=== PATIENT | male | born 1995 | race Caucasian/White ===

== ENCOUNTER 2023-08-22 12:05 | Emergency (ER) | payer OTHER, SELFPAY ==
[2023-08-22 12:06] VITALS: BP 128/64; PULSE 79; RESP 16; TEMP 35.3; O2SAT 99; BMI 35.8
--- NOTE | 2023-08-22 12:19 | EX.ED.DYSGE1 ---
HPI <SARAH Pitts - Last Filed: 08/22/23 13:34> History of Present Illness Chief Complaint: Complaint Narrative Narrative: 28-year-old male has a history of IgA nephropathy causing chronic kidney disease. This morning he had blood in his urine causing it to look pink-tinged. He had no pain and no frequency. He has a low backache and earlier he had pain in both legs below the level of the knees to his feet. States it felt like a sharp shooting pain. He follows with a political science instructor in [place] and his kidney function has been declining. The doctor stopped his lisinopril recently. The only thing he takes his allopurinol for gout. He states he had similar symptoms in the past and was treated in the ER with IV fluids. [facility] <SARAH Pitts - Last Filed: 08/22/23 13:34> [facility] Medical History (Updated 08/22/23 @ 13:34 by SARAH Pitts) CKD (chronic kidney disease) Home Medications allopurinol 100 mg tablet mg 08/22/23 [History Last Taken Unknown] lisinopril 10 mg tablet mg 08/22/23 [History Last Taken Unknown] Allergy/AdvReac Type Severity Reaction Status Date / Time No Known Allergies Allergy Verified 08/22/23 12:07 Surgical History no surgical history Social History Smoking Status: Never smoker ROS <SARAH Pitts - Last Filed: 08/22/23 13:34> ROS ED ROS Narrative Constitutional: Negative for fever, chills, malaise. GI: Negative for abdominal pain, nausea, vomiting. : Positive for hematuria. Negative for dysuria, frequency. EXAM <SARAH Pitts - Last Filed: 08/22/23 13:34> Physical Exam Narrative Exam Narrative: CONST: Patient sitting in no acute distress. EYES: Normal inspection. NECK: Normal inspection. RESP: No respiratory distress, CTAB. CVS: Regular rate and rhythm, no murmur, no gallop. ABD: Soft and nontender, no guarding or rebound, nondistended. Back: Normal inspection, no CVA tenderness. SKIN: Color normal, no rash, warm, dry, intact. EXTREMITIES: Normal appearance, nontender, no pedal edema. 2+ Dp pulses. NEURO: Oriented x4. PSYCH: Normal affect. Const Vital Signs: 08/22/23 12:06 Temperature 95.6 F L Temperature Source Temporal Pulse Rate 79 Respiratory Rate 16 Blood Pressure 128/64 H Blood Pressure Mean 85 Pulse Ox 99 Oxygen Delivery Method Room Air <Dr. Erickson Lozano DO - Last Filed: 08/22/23 16:38> Physical Exam Const Vital Signs: 08/22/23 12:06 Temperature 95.6 F L Temperature Source Temporal Pulse Rate 79 Respiratory Rate 16 Blood Pressure 128/64 H Blood Pressure Mean 85 Pulse Ox 99 Oxygen Delivery Method Room Air MDM <SARAH Pitts - Last Filed: 08/22/23 13:34> [facility] MDM Narrative Medical decision making narrative: Patient has a history of autoimmune kidney disease and CKD presenting with hematuria this morning. He appears well and nontoxic. Vital signs stable. He has no abdominal or flank tenderness so I do not suspect kidney stone, rather his underlying IgA nephropathy. He was treated with IV fluids and blood work ordered. White count is normal at 6.5. Hemoglobin 12.8. He has normal electrolytes, BUN 51, creatinine 3.43. This is improved from the level he showed me on his phone from a week ago. Urinalysis has no evidence of infection or blood. He was provided a copy of his labs and should follow-up with his political science instructor. He was discharged in stable condition. External records reviewed: Patient showed me lab work on his phone and on 08/16/2023 BUN was 60, creatinine 3.72. Lab Data Attestation: I reviewed the patient's lab results. Labs: Laboratory Results - last 24 hr 08/22/23 08/22/23 12:25 12:57 WBC 6.5 RBC 4.45 L Hgb 12.8 L Hct 37.8 L MCV 84.9 MCH 28.8 MCHC 33.9 RDW Std Deviation 38.7 RDW Coeff of Chantal 12.7 Plt Count 320 MPV 10.0 Immature Gran % (Auto) 0.200 Neut % (Auto) 53.0 Lymph % (Auto) 32.2 [place] % (Auto) 8.3 Eos % (Auto) 5.2 H Baso % (Auto) 1.1 H Absolute Neuts (auto) 3.5 Absolute Lymphs (auto) 2.10 Nucleated RBC % 0 Sodium 140 Potassium 4.8 Chloride 116 H Carbon Dioxide 18.0 L Anion Gap 6 BUN 51 H Creatinine 3.43 H Estim Creat Clear Calc 30.47 Est GFR (MDRD) Af Amer 27 L Est GFR (MDRD) Non-Af 22 L BUN/Creatinine Ratio 14.9 Glucose 91 Calcium 8.4 L Urine Color Yellow Urine Clarity Clear Urine pH 5.0 Ur Specific [place] 1.015 Urine Protein 500 H Urine Glucose (UA) Normal Urine Ketones Negative Urine Occult Blood 150 H Urine Nitrite Negative Urine Bilirubin Negative Urine Urobilinogen Normal Ur Leukocyte Esterase Negative Urine RBC 0 SEEN Urine WBC 0 SEEN Ur Squamous Epith Cells 0 SEEN Urine Bacteria 0 SEEN Fine Granular Casts 0-5 SEEN Urine Mucus 0 SEEN <Dr. Erickson Lozano, DO - Last Filed: 08/22/23 16:38> [facility] Lab Data Labs: Laboratory Results - last 24 hr 08/22/23 08/22/23 12:25 12:57 WBC 6.5 RBC 4.45 L Hgb 12.8 L Hct 37.8 L MCV 84.9 MCH 28.8 MCHC 33.9 RDW Std Deviation 38.7 RDW Coeff of Chantal 12.7 Plt Count 320 MPV 10.0 Immature Gran % (Auto) 0.200 Neut % (Auto) 53.0 Lymph % (Auto) 32.2 [place] % (Auto) 8.3 Eos % (Auto) 5.2 H Baso % (Auto) 1.1 H Absolute Neuts (auto) 3.5 Absolute Lymphs (auto) 2.10 Nucleated RBC % 0 Sodium 140 Potassium 4.8 Chloride 116 H Carbon Dioxide 18.0 L Anion Gap 6 BUN 51 H Creatinine 3.43 H Estim Creat Clear Calc 30.47 Est GFR (MDRD) Af Amer 27 L Est GFR (MDRD) Non-Af 22 L BUN/Creatinine Ratio 14.9 Glucose 91 Calcium 8.4 L Urine Color Yellow Urine Clarity Clear Urine pH 5.0 Ur Specific [place] 1.015 Urine Protein 500 H Urine Glucose (UA) Normal Urine Ketones Negative Urine Occult Blood 150 H Urine Nitrite Negative Urine Bilirubin Negative Urine Urobilinogen Normal Ur Leukocyte Esterase Negative Urine RBC 0 SEEN Urine WBC 0 SEEN Ur Squamous Epith Cells 0 SEEN Urine Bacteria 0 SEEN Fine Granular Casts 0-5 SEEN Urine Mucus 0 SEEN Treatment and Re-Evaluation :: I have personally performed a face to face assessment of the patient and have reviewed the MANOLO Note. I performed a substantive portion of the visit including all aspects of the following. My jimenez findings include: History: Patient presents with hematuria and back pain that began today. Patient states he woke up early this morning and had to urinate. Patient states he noted there was some blood in his urine. Patient states it appeared slightly pink. Patient states he had a second episode of hematuria later today. Patient states nothing makes it worse and nothing makes it better. Patient denies any fevers or chills. Patient denies any nausea or vomiting. Patient denies any flank pain. Exam: Vital signs are stable. Patient is afebrile. Patient is in no acute distress. Oral mucosa is pink and moist. Neck is supple. Trachea is midline. No JVD. Heart was regular rate and rhythm. Lungs are clear and equal bilaterally. Abdomen is soft. Bowel sounds are normal. There is no tenderness. Cranial nerves II through XII are intact. There are no focal motor or sensory deficits noted. There is no CVA tenderness noted. Medical Decision Making: Differential diagnosis includes pyelonephritis, urinary tract infection, and electrolyte abnormality. CBC will be obtained to assess for leukocytosis and anemia. Basic metabolic profile will be obtained to assess for renal function and electrolyte abnormality. Urinalysis will be obtained to assess for urinary tract infection and hematuria. CBC was reviewed. There is mild anemia with a hemoglobin of 12.8 and hematocrit 37.8. The remainder is within normal limits. Basic metabolic profile was reviewed. BUN was 51 and creatinine was 3.43. These are consistent with prior results. CO2 is slightly low at 18. Urinalysis was reviewed. Occult blood was 150. There are 0 red blood cells seen. Patient was given IV fluids. Patient is feeling better on reevaluation. Patient was instructed to follow-up with his primary care physician in 5 to 7 days. Patient understood and was agreeable with the plan. All questions were answered. Discharge Plan Triage Chief Complaint: Complaint ED Midlevel Provider: Keely Rocha ED Provider: Erickson Lozano Dx/Rx/DC Orders Clinical Impression: Hematuria, Chronic kidney disease, Anemia Instructions: Anemia and Kidney Disease Prescriptions: No Action allopurinol 100 mg tablet lisinopril 10 mg tablet Primary Care Provider: Quan Kim Referrals: Quan Kim MD [Primary Care Provider] - Activity Restrictions/Additional Instructions: Please follow-up with your political science instructor Disposition Disposition: Home, Self Care
[2023-08-22] MEDS: 0.9% Normal Saline (1000mL) 1,000 ML 999 ML IV (12:24)
[2023-08-22 12:33] LABS: Absolute Neutrophil Count 3.5 X10^3/uL (2.0-7.7); Basophil# 0.07 X10^3/uL; Basophil% 1.1 % (0-1); Eosinophil# 0.34 X10^3/uL; Eosinophils% 5.2 % (0-5); Hematocrit 37.8 % (40-54); Hemoglobin 12.8 g/dL (13.0-16.5); Lymphocyte % 32.2 % (19-41); Mean Corp Hgb Conc 33.9 g/dL (32-36); Mean Corpuscular Hgb 28.8 pg (27.0-32.0); Mean Corpuscular Volume 84.9 fL (80-94); Monocyte# 0.54 X10^3/uL; Monocyte% 8.3 % (0-10); NRBC Flagged by Analyzer 0 % (0-5); Neutrophil # 3.47 X10^3/uL (2.7-7.7); Platelet Count 320 K/mm3 (150-450); RBC Distribution Width CV 12.7 % (11.6-14.6); RBC Distribution Width SD 38.7 fl (35.1-43.9); Red Blood Count 4.45 M/mm3 (4.6-6.2); White Blood Count 6.5 K/mm3 (4.4-11.0)
[2023-08-22 12:45] LABS: Anion Gap 6 (5-15); BUN 51 mg/dL (7-18); BUN/Creat Ratio 14.9 RATIO (10-20); Calcium,Total 8.4 mg/dL (8.5-10.1); Chloride 116 mmol/L (98-107); Creatinine, Serum 3.43 mg/dL (0.70-1.30); EST Glomerular Filtration Rate 22 mL/min (>60); Est Glom Filt Rate - Afr Amer 27 mL/min (>60); Estimated Creatinine Clearance 30.47 ml/min; Glucose 91 mg/dL (74-106); Potassium 4.8 mmol/L (3.5-5.1); Sodium Level 140 mmol/L (136-145)
[2023-08-22 13:07] LABS: Bacteria 0 SEEN /hpf (None Seen); Mucous, Urine 0 SEEN /hpf (<or=2+); Red Blood Cells-Urine 0 SEEN /hpf (0-5); Squamous Epithelial Cells - UA 0 SEEN /hpf (0-5); White Blood Cells 0 SEEN /hpf (0-5)
[2023-08-22 13:09] LABS: Color, Urine Yellow (Yellow); Glucose, Dipstick Normal (Normal); Ketone-Dipstick Negative (Negative); Leukocyte Esterase-Dipstick Negative /ul (Negative); Nitrite-Dipstick Negative (Negative); Occult Blood-Urine 150 /ul (Negative); Protein-Dipstick 500 mg/dl (Negative); Specific Gravity, Urine 1.015 (1.002-1.030); Urine Bilirubin Dipstick Negative (Negative); Urine Clarity Clear (Clear); Urine Urobilinogen Normal (Normal)
[2023-08-22 13:16] LABS: Fine Granular Cast- Urine 0-5 SEEN /lpf (0-5)
== END 2023-08-22 13:40 | disposition home or self-care (01) ==
PROVIDERS: Physician Assistant; Emergency Provider Emergency Medicine; PCP Family Medicine; Visit Provider Emergency Medicine
DX: R31.9 Hematuria, unspecified (principal); N18.9 Chronic kidney disease, unspecified; D64.9 Anemia, unspecified; M10.9 Gout, unspecified; Z79.899 Other long term (current) drug therapy
CPT/HCPCS: 80048; 81001; 85025; 96360; 99283; J7030; A4216

== ENCOUNTER 2024-08-21 02:26 | Emergency (ER) | payer OTHER, SELFPAY ==
[2024-08-21 02:26] VITALS: BP 181/104; PULSE 115; RESP 25; TEMP 37.1; O2SAT 98; BMI 36.9
--- NOTE | 2024-08-21 03:03 | RAD_ITS ---
INDICATION: chest pain started around 0000 with chest pain and sob, thinks he has had the flu for the past couple of days, does peritoneal dialysis every night EXAMINATION/TECHNIQUE: X-RAY - XR Chest 2 Views COMPARISON: No relevant prior comparison study available FINDINGS: LINES/DEVICES: None. LUNGS: No consolidation. No pneumothorax. MEDIASTINUM: Unremarkable. CARDIAC SILHOUETTE: Not enlarged. BONES AND SOFT TISSUES: No acute abnormalities. RAD/Chest PA and Lateral IMPRESSION: No evidence of active intrathoracic disease. Electronically Signed: Deysi Michelle MD at 4:21 EST ,
--- NOTE | 2024-08-21 03:03 | EKG12_ITS ---
Test Reason : CP Blood Pressure : */* mmHG Vent. Rate : 112 BPM Atrial Rate : 112 BPM P-R Int : 158 ms QRS Dur : 90 ms QT Int : 330 ms P-R-T Axes : 53 34 24 degrees QTcB Int : 450 ms Sinus tachycardia Otherwise normal ECG Confirmed by MEGAN SILVA, ROSA ([id number]), electronic news gathering editor HUGO AGUILAR ([id number]) on 08/22/2024 8:06:47 AM Referred By: Confirmed By: ROSA GUZMAN MD
[2024-08-21] MEDS: 0.9% Normal Saline (500mL Bag) 500 ML 999 ML IV (03:11)
[2024-08-21 03:16] LABS: Absolute Lymphocyte Count 1.38 X10^3/uL (0.83-4.51); Absolute Neutrophil Count 8.7 X10^3/uL (2.0-7.7); Basophil# 0.05 X10^3/uL; Basophil% 0.5 % (0-1); Eosinophil# 0.09 X10^3/uL; Eosinophils% 0.8 % (0-5); Hematocrit 28.9 % (40-54); Hemoglobin 9.8 g/dL (13.0-16.5); Lymphocyte # 1.38 X10^3/ul (0.83-4.51); Lymphocyte % 12.6 % (19-41); Mean Corp Hgb Conc 33.9 g/dL (32-36); Mean Corpuscular Hgb 29.4 pg (27.0-32.0); Mean Corpuscular Volume 86.8 fL (80-94); Mean Platelet Vol. 9.2 fl (6.2-12.0); Monocyte# 0.73 X10^3/uL; Monocyte% 6.7 % (0-10); NRBC Flagged by Analyzer 0 % (0-5); Neutrophil # 8.67 X10^3/uL (2.7-7.7); Platelet Count 247 K/mm3 (150-450); RBC Distribution Width CV 12.9 % (11.6-14.6); RBC Distribution Width SD 40.7 fl (35.1-43.9); Red Blood Count 3.33 M/mm3 (4.6-6.2)
[2024-08-21 03:26] VITALS: BP 161/106; PULSE 107; RESP 18; O2SAT 97
[2024-08-21 03:43] LABS: AST(SGOT) 23 U/L (15-37); Alanine Aminotransfer ALT/SGPT 40 U/L (16-61); Albumin, Serum 3.2 g/dL (3.2-5.0); Alkaline Phosphatase 62 U/L (45-117); Anion Gap 12 (5-15); BUN 94 mg/dL (7-18); BUN/Creat Ratio 5.2 RATIO (10-20); Bilirubin, Direct 0.12 mg/dL (0.00-0.30); Calcium,Total 9.1 mg/dL (8.5-10.1); Chloride 101 mmol/L (98-107); EST Glomerular Filtration Rate 3 mL/min (>60); Est Glom Filt Rate - Afr Amer 4 mL/min (>60); Estimated Creatinine Clearance 7.12 ml/min; Globulin 3.7 g/dL (2.2-4.2); Glucose 128 mg/dL (74-106); Lipase 74 U/L (13-75); Phosphorus 6.4 mg/dL (2.5-4.9); Potassium 3.8 mmol/L (3.5-5.1); Protein, Total 6.9 g/dL (6.4-8.2); Sodium Level 135 mmol/L (136-145)
[2024-08-21 04:00] VITALS: BP 161/100; PULSE 107; RESP 15; O2SAT 97
--- NOTE | 2024-08-21 04:37 | EDS_ITS ---
HPI History of Present Illness Chief Complaint: Chest Pain Informant: patient Narrative Narrative: Patient is a 29-year-old male with past medical history of IgA nephropathy which has led to end-stage renal disease with dialysis. He also has a history of hypertension. Patient states that around midnight he noticed some midsternal chest discomfort. He states that there was no associated nausea vomiting or diaphoresis. However he states for the past 2 days or so he thinks he got the flu and he had bouts of nausea vomiting and diarrhea. He does state that his kids were sick with the same symptoms. He reports though symptoms have improved but with the chest discomfort and his history of nephropathy he presents for evaluation. He denies any history of cardiac disease at a young age in the family he denies any history of DVT/PE and he denies any illicit drug use [facility] Medical History (Updated 08/21/24 @ 04:[address] Drew Franklin, DO) Peritoneal dialysis catheter in place CKD (chronic kidney disease) Home Medications ?Medication ?Instructions ?Recorded ?Last Taken ?Type allopurinol 100 mg tablet mg 08/22/23 Unknown History lisinopril 10 mg tablet mg 08/22/23 Unknown History atorvastatin 40 mg tablet 40 mg PO QHS cholesterol 08/21/24 Unknown History ergocalciferol (vitamin D2) 1,250 1,250 mcg PO QWEEK 08/21/24 Unknown History mcg (50,000 unit) capsule (Vitamin D2) hydralazine 50 mg tablet 50 mg PO BID 08/21/24 Unknown History lanthanum 1,000 mg chewable tablet 1,000 mg PO TID 08/21/24 Unknown History losartan 100 mg tablet 100 mg PO DAILY 08/21/24 Unknown History nifedipine 60 mg tablet,extended 60 mg PO DAILY 08/21/24 Unknown History release ondansetron 4 mg disintegrating 4 mg PO TID PRN nausea and 08/21/24 Unknown Rx tablet vomiting #21 tabs oxycodone 5 mg tablet 5 mg PO Q6H PRN pain 3 days #12 08/21/24 Unknown Rx tabs patiromer calcium sorbitex 8.4 8.4 g PO DAILY 08/21/24 Unknown History gram oral powder packet (Veltassa) sevelamer carbonate 800 mg tablet 1,600 mg PO TID 08/21/24 Unknown History sodium bicarbonate 650 mg tablet 1,300 mg PO TID 08/21/24 Unknown History sucroferric oxyhydroxide 500 mg 1,000 mg PO BID 08/21/24 Unknown History chewable tablet (Velphoro) Allergy/AdvReac Type Severity Reaction Status Date / Time No Known Allergies Allergy Verified 08/21/24 02:26 Social History Smoking Status: Never smoker ROS ROS ED Constitutional Constitutional ED: Denies chills or fever(s) Eyes Eyes: Denies blurry vision or change in vision ENT ENT ED: Denies rhinorrhea or sore throat Cardiovascular Cardiovascular: Reports chest pain; Denies palpitations or racing heartbeat Respiratory/Chest Respiratory/Chest: Denies cough or dyspnea Gastrointestinal Gastrointestinal: Reports diarrhea, nausea, vomiting and other Details: Patient reports the symptoms were present roughly 2 days ago ; Denies abdominal pain Musculoskeletal Musculoskeletal: Denies back pain Integumentary Denies rash Neurologic Neurologic: Denies headache(s) Hematologic/Lymphatic Hematologic/Lymphatic: Denies easy bleeding or easy bruising EXAM Physical Exam Const Vital Signs: 08/21/24 02:26 08/21/24 02:26 08/21/24 03:26 Temperature 98.7 F Temperature Source Oral Pulse Rate 115 H 107 H Respiratory Rate 25 H 18 Respiratory Effort Short of Breath Blood Pressure 181/104 H 161/106 H Blood Pressure Mean 129 124 Pulse Ox 98 97 Oxygen Delivery Method Room Air Room Air 08/21/24 04:00 Temperature Temperature Source Pulse Rate 107 H Respiratory Rate 15 Respiratory Effort Blood Pressure 161/100 H Blood Pressure Mean 120 Pulse Ox 97 Oxygen Delivery Method Room Air Positive well nourished and well developed General Appearance ED: well developed; Negative for pallor HEENT Reports dry mucous membranes HEENT Narrative: No tongue or lip swelling no oral lesions no airway edema or compromise Mucous membranes are slightly dry and tacky No findings of infection in the posterior pharynx Mouth ED: Yes dry mucous membranes Mouth: dry mucous membranes Eyes PERRL and EOMs intact bilaterally General Eye ED: Negative for scleral icterus Neck supple Neck Narrative: No nuchal rigidity or meningeal signs noted Chest Wall palpation of chest normal Chest Narrative: No bony deformity or crepitance Resp normal respiratory effort and clear to auscultation bilaterally Resp Narrative: No nasal flaring retractions or accessory muscle use. Breath sounds are slight diminished throughout but overall clear to auscultation without rales wheezes or rhonchi noted Cardio regular rhythm Rate: tachycardic and other Other Details: Tachycardic rate with regular rhythm No murmurs rubs or gallops Radial and carotid pulses are equal and symmetric No carotid bruit noted GI normal to inspection, nondistended, normoactive bowel sounds, non-tender, non- distended and no masses GI Narrative: Abdomen is soft nontender nondistended with normal active bowel sounds. No voluntary guarding or rigidity or pulsatile mass. Patient has a peritoneal dialysis catheter in place in the left lower abdomen consistent with his history of end-stage renal disease. The insertion site is clean dry and intact without secondary findings to suggest infection. No rigidity noted to suggest SBP. Auscultation: normoactive bowel sounds Palpation: soft Extremity normal to inspection Extremity Narrative: No asymmetric edema no pitting edema negative Homans' sign bilaterally Neuro oriented x3, CN's II-XII intact bilaterally and no sensory deficits noted Sensorium / Orientation: alert Motor Exam: strength 5/5 throughout Psych mental status grossly normal Skin no rashes or lesions noted General Skin Exam: Negative for jaundice or pallor MDM MDM MDM Narrative Medical decision making narrative: Patient arrived to ER hypertensive but has a past medical history of this. He reported nausea vomiting diarrhea over the past 2 days which has since resolved and then the development of a vague midsternal chest discomfort that was present in the lower chest/upper abdominal region. Temporal diagnosis is for acute coronary syndrome versus cardiac dysrhythmia versus atypical pancreatitis versus biliary colic or acute cholecystitis. Secondary to this an EKG was obtained which showed sinus tachycardia. There is no ischemic findings to suggest lack of blood flow to the heart and no cardiac dysrhythmia present. Based on his recent bouts of vomiting and diarrhea there is concern for dehydration or potential electrolyte abnormalities such as hyperkalemia or hyperphosphatemia. Basic blood work showed that his creatinine is elevated 18 which is consistent with his history of dialysis. However his potassium was normal at 3.8. His phosphorus is slightly elevated at 6.4 but he has not done his dialysis at this time. Hemoglobin is slightly low at approximately 10 but chart review reveals this is baseline. Lipase is normal going against acute pancreatitis and his liver enzymes are normal going against a biliary issue. As his physical exam showed mild dehydration he was given 500 mL of fluid and patient reported improvement of his symptoms. Blood pressure remained elevated but improved from initial presentation and I feel that the patient simply needs to take his home medication for hypertension to help control this and therefore not provide further medication at this time as he reports improvement of his symptoms. Therefore as EKG shows no signs of ischemia he has not had a cardiac dysrhythmia he does not have significant electrolyte abnormalities and his symptoms have improved there is no need for further workup and he is otherwise safe for discharge. History & Record Review Discussion w/independent historian: Patient Lab Data Attestation: I reviewed the patient's lab results. Labs: Laboratory Results - last 24 hr 08/21/24 03:11 WBC 11.0 RBC 3.33 L Hgb 9.8 L Hct 28.9 L MCV 86.8 MCH 29.4 MCHC 33.9 RDW Std Deviation 40.7 RDW Coeff of Chantal 12.9 Plt Count 247 MPV 9.2 Immature Gran % (Auto) 0.400 Neut % (Auto) 79.0 H Lymph % (Auto) 12.6 L [place] % (Auto) 6.7 Eos % (Auto) 0.8 Baso % (Auto) 0.5 Absolute Neuts (auto) 8.7 H Absolute Lymphs (auto) 1.38 Nucleated RBC % 0 Sodium 135 L Potassium 3.8 Chloride 101 Carbon Dioxide 22.0 Anion Gap 12 BUN 94 H Creatinine 18.10 H* Estim Creat Clear Calc 7.12 Est GFR (MDRD) Af Amer 4 L Est GFR (MDRD) Non-Af 3 L BUN/Creatinine Ratio 5.2 L Glucose 128 H Calcium 9.1 Phosphorus 6.4 H Total Bilirubin 0.40 Direct Bilirubin 0.12 AST 23 ALT 40 Alkaline Phosphatase 62 Total Protein 6.9 Albumin 3.2 Globulin 3.7 Lipase 74 Radiography Diagnostic Testing: Clinical Impression(s) from Imaging Studies Chest X-Ray 08/21/24 03:03 IMPRESSION: No evidence of active intrathoracic disease. Electronically Signed: Deysi Michelle MD at 4:21 EST , 2 view chest x-ray as interpreted by the emergency medicine physician reveals no acute infiltrate pneumothorax pleural effusion or widening of the mediastinum Discharge Plan Triage Chief Complaint: Chest Pain ED Provider: Drew Franklin Dx/Rx/DC Orders Clinical Impression: Nonspecific chest pain, Hypertension, IgA nephropathy, End stage renal disease on dialysis Instructions: ED Chest Pain, Uncertain Cause, ED Hypertension, Established Prescriptions: New oxycodone 5 mg tablet 5 mg PO Q6H PRN (Reason: pain) 3 Days Qty: 12 0RF ondansetron 4 mg tablet,disintegrating 4 mg PO TID PRN (Reason: nausea and vomiting) Qty: 21 0RF No Action allopurinol 100 mg tablet lisinopril 10 mg tablet sodium bicarbonate 650 mg tablet 1,300 mg PO TID Velphoro 500 mg tablet,chewable 1,000 mg PO BID losartan 100 mg tablet 100 mg PO DAILY lanthanum 1,000 mg tablet,chewable 1,000 mg PO TID [place]eltassa 8.4 gram powder in packet 8.4 g PO DAILY atorvastatin 40 mg tablet 40 mg PO QHS hydralazine 50 mg tablet 50 mg PO BID ergocalciferol (vitamin D2) [Vitamin D2] 1,250 mcg (50,000 unit) capsule 1,250 mcg PO QWEEK nifedipine 60 mg tablet extended release 60 mg PO DAILY sevelamer carbonate 800 mg tablet 1,600 mg PO TID Stand Alone Forms: Work / School Excuse Primary Care Provider: Quan Kim Referrals: Quan Kim MD [Primary Care Provider] - Activity Restrictions/Additional Instructions: Please continue your home dialysis as directed by your doctor as well as all of your medications. Keep yourself hydrated to replace the fluid loss from your recent bouts of nausea and vomiting and return to the ER should you have any further concerns or worsening of symptoms Print Language: Cook Islander Disposition Disposition: Home, Self Care Discharge Date/Time: 08/21/24 04:47
[2024-08-21 04:41] VITALS: BP 163/100; PULSE 102; RESP 18; TEMP 36.7; O2SAT 97
[2024-08-21] MEDS: oxyCODONE 5 MG Tablet PO (04:45)
== END 2024-08-21 04:47 | disposition home or self-care (01) ==
PROVIDERS: Emergency Provider Emergency Medicine; PCP Family Medicine; Visit Provider Emergency Medicine
DX: R07.9 Chest pain, unspecified (principal); N18.6 End stage renal disease; Z99.2 Dependence on renal dialysis; Z79.899 Other long term (current) drug therapy; N02.B1 Recurrent and persistent immunoglobulin A nephropathy with glomerular lesion; I10 Essential (primary) hypertension
CPT/HCPCS: 71046; 80048; 80076; 83690; 84100; 85025; 93005; 96360; 99284; A4216

== ENCOUNTER 2024-08-31 15:06 | Emergency (ER) | payer OTHER, SELFPAY ==
[2024-08-31 15:07] VITALS: BP 189/114; PULSE 98; RESP 16; TEMP 36.3; O2SAT 100; BMI 36.7
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
--- NOTE | 2024-08-31 15:30 | CT_ITS ---
STUDY: CT ABDOMEN AND PELVIS WITHOUT CONTRAST REASON FOR EXAM: Male, 29 years old. Pain RADIATION DOSAGE (If Supplied By Facility): CTDIvol = ( 19.79 ) mGy, DLP = ( 1008.39 ) mGycm TECHNIQUE: Transaxial images were obtained from the dome of the diaphragm to the symphysis pubis without oral contrast, and without intravenous contrast. Sagittal and coronal images were reconstructed. Individualized dose optimization techniques were used for this CT. COMPARISON: None. FINDINGS: The visualized lung bases are unremarkable. Small pericardial effusion is noted. There is no coronary artery calcification Normal liver. Contracted thick-walled gallbladder without calcified stones possibly physiologic.. Normal spleen. Normal pancreas. Normal bilateral adrenal glands. Normal right kidney. Normal left kidney. Normal visualized stomach. Mild nonspecific ileus with fecal retention in the colon. The appendix is visualized and appears normal. Normal abdominal aorta. Normal inferior vena cava. Normal retroperitoneum. Incompletely distended thick walled bladder likely of no significance Dialysis catheter is noted entering the lower anterior pelvis clinical data above the dome of the bladder.. There is a small amount of free fluid in the pouch of Bishnu Normal abdominal wall. Normal osseous structures. CT/Abdomen/Pelvis without Cont IMPRESSION: Mild nonspecific ileus with fecal retention in the colon. Peritoneal dialysis catheter noted within the mid lower pelvis curled up above the dome of the bladder. Small amount of free fluid within the pouch of Bishnu Electronically Signed: Quan Talavera MD at 16:29 EST ,
[2024-08-31] MEDS: Metoclopramide 10 MG/2 ML Vial 5 MG IV (15:42)
[2024-08-31] MEDS: Ketorolac 15 MG/ML Vial IV (15:43)
[2024-08-31] MEDS: Morphine 4 MG/ML Syringe IV (15:44)
[2024-08-31 15:55] LABS: Absolute Lymphocyte Count 1.57 X10^3/uL (0.83-4.51); Absolute Neutrophil Count 7.4 X10^3/uL (2.0-7.7); Basophil# 0.07 X10^3/uL; Basophil% 0.7 % (0-1); Eosinophil# 0.41 X10^3/uL; Eosinophils% 4.1 % (0-5); Hematocrit 27.4 % (40-54); Hemoglobin 9.3 g/dL (13.0-16.5); Lymphocyte # 1.57 X10^3/ul (0.83-4.51); Lymphocyte % 15.6 % (19-41); Mean Corp Hgb Conc 33.9 g/dL (32-36); Mean Corpuscular Hgb 29.2 pg (27.0-32.0); Mean Corpuscular Volume 85.9 fL (80-94); Mean Platelet Vol. 9.1 fl (6.2-12.0); Monocyte# 0.56 X10^3/uL; Monocyte% 5.6 % (0-10); NRBC Flagged by Analyzer 0 % (0-5); Neutrophil # 7.43 X10^3/uL (2.7-7.7); Neutrophil % 73.6 % (47-70); Platelet Count 268 K/mm3 (150-450); RBC Distribution Width CV 12.7 % (11.6-14.6); RBC Distribution Width SD 39.5 fl (35.1-43.9); Red Blood Count 3.19 M/mm3 (4.6-6.2); White Blood Count 10.1 K/mm3 (4.4-11.0)
[2024-08-31 16:07] LABS: Mucous, Urine 0 SEEN /hpf (<or=2+); Squamous Epithelial Cells - UA 0 SEEN /hpf (0-5)
[2024-08-31 16:08] LABS: Color, Urine Yellow (Yellow); Glucose, Dipstick 50 mg/dl (Normal); Ketone-Dipstick Negative (Negative); Leukocyte Esterase-Dipstick 100 /ul (Negative); Nitrite-Dipstick Negative (Negative); Occult Blood-Urine 50 /ul (Negative); Protein-Dipstick 500 mg/dl (Negative); Urine Bilirubin Dipstick Negative (Negative); Urine Clarity Clear (Clear); Urine Urobilinogen Normal (Normal)
[2024-08-31 16:13] LABS: Red Blood Cells-Urine 0-5 SEEN /hpf (0-5); White Blood Cells 0-5 SEEN /hpf (0-5)
[2024-08-31 16:14] LABS: Bacteria RARE /hpf (None Seen)
[2024-08-31 16:22] LABS: AST(SGOT) 21 U/L (15-37); Alanine Aminotransfer ALT/SGPT 32 U/L (16-61); Albumin, Serum 3.2 g/dL (3.2-5.0); Alkaline Phosphatase 63 U/L (45-117); Anion Gap 11 (5-15); BUN 80 mg/dL (7-18); BUN/Creat Ratio 3.9 RATIO (10-20); Bilirubin, Direct 0.11 mg/dL (0.00-0.30); Calcium,Total 9.2 mg/dL (8.5-10.1); Chloride 98 mmol/L (98-107); EST Glomerular Filtration Rate 3 mL/min (>60); Est Glom Filt Rate - Afr Amer 3 mL/min (>60); Globulin 3.7 g/dL (2.2-4.2); Glucose 98 mg/dL (74-106); Lipase 67 U/L (13-75); Protein, Total 6.9 g/dL (6.4-8.2); Sodium Level 136 mmol/L (136-145)
[2024-08-31 17:03] LABS: Estimated Creatinine Clearance 6.24 ml/min
[2024-08-31 17:49] VITALS: BP 176/111; PULSE 83; RESP 15; O2SAT 97
[2024-08-31 18:11] VITALS: BP 176/100; PULSE 85; RESP 18; TEMP 36.6; O2SAT 99
== END 2024-08-31 18:12 | disposition home or self-care (01) ==
PROVIDERS: Emergency Provider Emergency Medicine; PCP Family Medicine; Visit Provider Emergency Medicine
DX: R10.9 Unspecified abdominal pain (principal); N18.6 End stage renal disease; I12.0 Hypertensive chronic kidney disease with stage 5 chronic kidney disease or end stage renal disease; R11.2 Nausea with vomiting, unspecified; E78.5 Hyperlipidemia, unspecified; Z99.2 Dependence on renal dialysis; Z79.899 Other long term (current) drug therapy
CPT/HCPCS: 74176; 80048; 80076; 81001; 83690; 85025; 96374; 96375; 99283

== ENCOUNTER 2024-11-27 20:33 | Emergency (ER) | payer OTHER, SELFPAY ==
[2024-11-27] VITALS (31 sets, daily range): BP systolic 173–230; BP diastolic 106–139; PULSE 92–147; RESP 10–26; TEMP 36.6–36.7; O2SAT 88–100; BMI 34.0
[2024-11-27] MEDS: Lorazepam 2 MG/ML WCH Syringe IV (20:46)
--- NOTE | 2024-11-27 20:50 | EKG12_ITS ---
Test Reason : DYSRHYTHMIA Blood Pressure : */* mmHG Vent. Rate : 135 BPM Atrial Rate : 135 BPM P-R Int : 144 ms QRS Dur : 88 ms QT Int : 278 ms P-R-T Axes : 42 29 234 degrees QTcB Int : 417 ms Sinus tachycardia Left ventricular hypertrophy with repolarization abnormality ( Sokolow-Alanis ) Abnormal ECG Confirmed by MEGAN SILVA, ROSA ([id number]), script editor HUGO AGUILAR ([id number]) on 11/29/2024 8:46:49 AM Referred By: Confirmed By: ROSA GUZMAN MD
--- NOTE | 2024-11-27 20:52 | EX.ED.DYSGE1 ---
HPI History of Present Illness Chief Complaint: Seizure Informant: parent Narrative Narrative: Brought in by EMS from home father currently present for seizure event. Per father no history of seizures. Patient on peritoneal dialysis past year history of Buerger's disease. Unclear if he makes any urine per father. Reports he lives with his spouse. Patient scheduled for kidney transplant tomorrow donation from a friend at [facility]. He is followed by Dr. Sadler at [facility]. Per father no recent illness. No cough no vomiting or diarrhea. Upon arrival per nursing patient was back to his baseline reporting he noted an oral. I was called to the room when he was actively having a seizure. Prior similar symptoms: No PFSH PFS Medical History Peritoneal dialysis catheter in place CKD (chronic kidney disease) Home Medications ?Medication ?Instructions ?Recorded ?Last Taken ?Type allopurinol 100 mg tablet 100 mg PO DAILY 08/22/23 Unknown History hydralazine 50 mg tablet 50 mg PO BID 08/21/24 Unknown History nifedipine 60 mg tablet,extended 60 mg PO DAILY 08/21/24 Unknown History release ondansetron 4 mg disintegrating 4 mg PO TID PRN nausea and 08/21/24 Unknown Rx tablet vomiting #21 tabs patiromer calcium sorbitex 8.4 8.4 g PO DAILY 08/21/24 Unknown History gram oral powder packet (Veltassa) sevelamer carbonate 800 mg tablet 1,600 mg PO TID 08/21/24 Unknown History sodium bicarbonate 650 mg tablet 1,300 mg PO TID 08/21/24 Unknown History sucroferric oxyhydroxide 500 mg 1,000 mg PO BID 08/21/24 Unknown History chewable tablet (Velphoro) metoclopramide HCl 5 mg tablet 5 mg PO Q8H PRN PRN nausea and 08/31/24 Unknown Rx (Reglan) vomiting 3 days #10 tabs ergocalciferol (vitamin D2) 1,250 1,250 mcg PO QWEEK 11/27/24 Unknown History mcg (50,000 unit) capsule hydralazine 100 mg tablet 100 mg PO Q8 11/27/24 Unknown History losartan 25 mg tablet 25 mg PO QHS 11/27/24 Unknown History nifedipine 60 mg tablet,extended 60 mg PO BID 11/27/24 Unknown History release 24 hr ondansetron HCl 8 mg tablet 8 mg PO Q12H PRN PRN nausea 11/27/24 Unknown History vit B,C-folic ac 800 mcg-zinc 12.5 1 tab PO DAILY 11/27/24 Unknown History mg-selen-D3 2,000 unit-vit E tablet (RenaPlex-D) Allergy/AdvReac Type Severity Reaction Status Date / Time No Known Allergies Allergy Verified 11/27/24 20:41 Social History Smoking Status: Never smoker ROS ROS ED Review of Systems ROS Unobtainable: due to mental status EXAM Physical Exam Const Vital Signs: 11/27/24 20:34 11/27/24 20:48 11/27/24 20:55 Temperature 98 F Temperature Source Oral Pulse Rate 112 H 145 H 147 H Respiratory Rate 16 25 H 24 H Blood Pressure 199/132 H 173/119 H Blood Pressure Mean 154 134 Pulse Ox 94 100 98 Oxygen Delivery Method Room Air Room Air Oxygen Flow Rate (L/min) 11/27/24 21:00 11/27/24 21:01 11/27/24 21:05 Temperature Temperature Source Pulse Rate 135 H Respiratory Rate 23 H Blood Pressure 209/106 H 198/106 H Blood Pressure Mean 131 130 Pulse Ox 96 95 Oxygen Delivery Method Room Air Oxygen Flow Rate (L/min) 11/27/24 21:08 11/27/24 21:10 11/27/24 21:15 Temperature Temperature Source Pulse Rate 134 H 140 H 137 H Respiratory Rate 20 H 19 H 12 Blood Pressure 198/106 H 193/109 H 193/106 H Blood Pressure Mean 136 128 126 Pulse Ox 94 95 93 Oxygen Delivery Method Nasal Cannula Room Air Oxygen Flow Rate (L/min) 2 11/27/24 21:20 11/27/24 21:25 11/27/24 21:40 Temperature Temperature Source Pulse Rate 138 H 132 H Respiratory Rate 26 H 12 Blood Pressure 194/112 H 193/108 H 198/121 H Blood Pressure Mean 130 129 142 Pulse Ox 92 92 Oxygen Delivery Method Room Air Oxygen Flow Rate (L/min) 11/27/24 21:41 11/27/24 21:45 11/27/24 21:47 Temperature Temperature Source Pulse Rate 125 H 122 H 123 H Respiratory Rate 14 12 20 H Blood Pressure 194/130 H 208/130 H Blood Pressure Mean 145 148 Pulse Ox 90 90 93 Oxygen Delivery Method Room Air Nasal Cannula Oxygen Flow Rate (L/min) 2 11/27/24 21:49 11/27/24 21:50 11/27/24 21:50 Temperature 98.1 F Temperature Source Oral Pulse Rate 121 H 117 H Respiratory Rate 24 H 22 H Blood Pressure 230/108 H 208/128 H Blood Pressure Mean 148 147 Pulse Ox 88 95 94 Oxygen Delivery Method Room Air Nasal Cannula Nasal Cannula Oxygen Flow Rate (L/min) 2 2 11/27/24 21:55 11/27/24 22:00 11/27/24 22:05 Temperature Temperature Source Pulse Rate 116 H 113 H 113 H Respiratory Rate 23 H 23 H 23 H Blood Pressure 207/127 H 214/129 H 205/123 H Blood Pressure Mean 145 148 143 Pulse Ox 95 94 94 Oxygen Delivery Method Nasal Cannula Oxygen Flow Rate (L/min) 2 11/27/24 22:10 11/27/24 22:15 11/27/24 22:20 Temperature Temperature Source Pulse Rate 112 H 108 H 111 H Respiratory Rate 22 H 23 H 25 H Blood Pressure 219/133 H 218/134 H 222/139 H Blood Pressure Mean 157 154 160 Pulse Ox 94 94 94 Oxygen Delivery Method Oxygen Flow Rate (L/min) 11/27/24 22:25 11/27/24 22:30 11/27/24 22:30 Temperature Temperature Source Pulse Rate 118 H 114 H Respiratory Rate 25 H 23 H Blood Pressure 225/136 H 212/127 H 212/127 H Blood Pressure Mean 149 155 149 Pulse Ox 94 95 Oxygen Delivery Method Nasal Cannula Nasal Cannula Oxygen Flow Rate (L/min) 2 2 11/27/24 22:42 11/27/24 22:45 11/27/24 22:45 Temperature Temperature Source Pulse Rate 98 92 92 Respiratory Rate 23 H 23 H 23 H Blood Pressure 213/129 H 208/134 H Blood Pressure Mean 151 155 Pulse Ox 90 94 94 Oxygen Delivery Method Nasal Cannula Nasal Cannula Oxygen Flow Rate (L/min) 2 2 11/27/24 23:00 11/27/24 23:15 Temperature Temperature Source Pulse Rate 100 98 Respiratory Rate 17 Blood Pressure Blood Pressure Mean Pulse Ox 98 98 Oxygen Delivery Method Oxygen Flow Rate (L/min) Constitutional Narrative: Actively seizing tonic-clonic contractions. Chest Wall Chest: Negative for tenderness Resp Effort and Inspection: respiratory distress Cardio regular rhythm and no murmurs Rate: tachycardic Peripheral Pulses: pulses 2+ throughout GI GI Narrative: No distention, peritoneal dialysis cath left side abdomen clean, dry, intact. Palpation: Negative for guarding or rebound tenderness present Neuro Neuro Narrative: Actively seizing. Sepsis Attestation Sepsis Alert: Yes Sepsis Attestation: Agree w/Sepsis Date exam was performed: 11/27/24 Possible Source of Sepsis: Pulmonary and Genitourinary Sepsis Organ Dysfunction Criteria Present: Lactic Acid > 2 mmol/L Fluid Resuscitation Fluid Resuscitation ordered: Fluids not indicated Amount of fluid ordered: 1,000 MDM MDM MDM Narrative Medical decision making narrative: Interventions / MDM: Differential diagnosis: New onset seizure, end-stage renal disease on peritoneal dialysis, aspiration pneumonia, hypoxia patient and father Diagnosis considered but do not suspect: Intra hemorrhage,/mass however CT negative. My EKG interpretation: Sinus rate of 135, no ST or T wave changes. Imaging independently reviewed and interpreted by myself: CT brain: No acute process. 1 view chest x-ray: Retrocardiac infiltrate. External documents reviewed: N/A Test considered but not ordered:N/A ED course: Active seizure, 2 mg IV Ativan ordered as he had IV access. Will load with Keppra as this is a second event. Seizure precautions. Unclear if he makes any urine Lyons catheter be ordered for testing. Chest x-ray CT brain labs ordered. EKG sinus tachycardia no erythremia noted. Nursing able to straight cath there was a small amount of urine which we sent for UA. Blood glucose 134. 2229: CT brain negative. Chest x-ray concerns for retrocardiac infiltrate for concerning aspiration. he now required 2 L of oxygen. He is awake and alert. He was in his normal health prior to the seizure no cough. He is white count of 21,000. BUN 45 creatinine 18 needs peritoneal dialysis potassium 3.4. Alcohol negative. Tachycardic with white cell count I added lactic acid and blood cultures. Unasyn and Zithromax per sepsis protocol for aspiration ordered. Blood pressure 200s, with his tachycardia labetalol 10 mg ordered. He is peritoneal dialysis, this hospital unable to care for patient on peritoneal dialysis and inpatient per policy. He established with [facility] with his digital marketing executive, I will speak to them for transfer for new onset seizures and aspiration pneumonia on oxygen at this time. He reports he makes 7 to 10 mL of urine a day. Heart rate 110s. 2250: Discussed with [facility] transfer, updated on patient's history and information. They will call back with physician. 2340: Lactic acid returned back at 3.8 could be combination of infection and seizure. Is not hypotensive. Meets severe sepsis criteria however is not hypotensive. Re-evaluation: stable Disposition discussed with patient/family/significant other: Patient and father Case discussed with consulting clinician: [facility] This note was generated with Info dictation software. It may contain incorrect words, spelling, and punctuation that were not noted in checking the note before signing. Lab Data Attestation: I reviewed the patient's lab results. Labs: Laboratory Results - last 24 hr 11/27/24 11/27/24 11/27/24 20:50 20:53 20:55 WBC 21.2 H RBC 4.48 L Hgb 12.8 L Hct 41.1 MCV 91.7 MCH 28.6 MCHC 31.1 L RDW Std Deviation 49.6 H RDW Coeff of Chantal 15.0 H Plt Count 165 MPV 9.1 Immature Gran % (Auto) 0.400 Neut % (Auto) 57.0 Lymph % (Auto) 25.9 [place] % (Auto) 11.4 H Eos % (Auto) 4.7 Baso % (Auto) 0.6 Absolute Neuts (auto) 12.1 H Absolute Lymphs (auto) 5.50 H Nucleated RBC % 0 Differential Comment SCANNED Diff Path Review May foll Platelet Estimate ADEQUATE Plt Morphology Comment CLUMPED Acanthocytes (Spur) RARE PT 14.8 INR 1.1 APTT 22.8 L Sodium 138 Potassium 3.4 Chloride 90 L Carbon Dioxide 11.0 L Anion Gap 37 H BUN 45 H Creatinine 18.40 H* Estim Creat Clear Calc 6.72 L* Est GFR (MDRD) Non-Af 3 L BUN/Creatinine Ratio 2.5 L Glucose 135 H Lactic Acid Calcium 10.0 Total Bilirubin 0.39 AST 30 ALT 17 Alkaline Phosphatase 68 Total Protein 6.6 Albumin 3.7 Globulin 2.8 Albumin/Globulin Ratio 1.3 Urine Color Yellow Urine Clarity Cloudy Urine pH 8.0 Ur Specific [place] 1.010 Urine Protein 500 H Urine Glucose (UA) 100 H Urine Ketones Negative Urine Occult Blood 150 H Urine Nitrite Negative Urine Bilirubin Negative Urine Urobilinogen Normal Ur Leukocyte Esterase 100 H Urine RBC 5-10 SEEN Urine WBC 25-50 SEEN Ur Squamous Epith Cells 0 SEEN Urine Bacteria 3+ Urine Mucus 2+ Urine Opiates Screen PRESUMPTIVE POSITIVE U Buprenorphine Qual NEGATIVE Ur Oxycodone Screen NEGATIVE Urine Methadone Screen NEGATIVE Urine Fentanyl Screen NEGATIVE Ur Barbiturates Screen NEGATIVE Ur Phencyclidine Scrn NEGATIVE Ur Amphetamines Screen NEGATIVE U Benzodiazepines Scrn NEGATIVE Urine Cocaine Screen NEGATIVE U Cannabinoids Screen PREUMTIVE POSITIVE Ethyl Alcohol < 10.1 POC Glucose 134 H 11/27/24 22:40 WBC RBC Hgb Hct MCV MCH MCHC RDW Std Deviation RDW Coeff of Chantal Plt Count MPV Immature Gran % (Auto) Neut % (Auto) Lymph % (Auto) [place] % (Auto) Eos % (Auto) Baso % (Auto) Absolute Neuts (auto) Absolute Lymphs (auto) Nucleated RBC % Differential Comment Diff Path Review Platelet Estimate Plt Morphology Comment Acanthocytes (Spur) PT INR APTT Sodium Potassium Chloride Carbon Dioxide Anion Gap BUN Creatinine Estim Creat Clear Calc Est GFR (MDRD) Non-Af BUN/Creatinine Ratio Glucose Lactic Acid 3.8 H* Calcium Total Bilirubin AST ALT Alkaline Phosphatase Total Protein Albumin Globulin Albumin/Globulin Ratio Urine Color Urine Clarity Urine pH Ur Specific [place] Urine Protein Urine Glucose (UA) Urine Ketones Urine Occult Blood Urine Nitrite Urine Bilirubin Urine Urobilinogen Ur Leukocyte Esterase Urine RBC Urine WBC Ur Squamous Epith Cells Urine Bacteria Urine Mucus Urine Opiates Screen U Buprenorphine Qual Ur Oxycodone Screen Urine Methadone Screen Urine Fentanyl Screen Ur Barbiturates Screen Ur Phencyclidine Scrn Ur Amphetamines Screen U Benzodiazepines Scrn Urine Cocaine Screen U Cannabinoids Screen Ethyl Alcohol POC Glucose Radiography Diagnostic Testing: Clinical Impression(s) from Imaging Studies Brain CT 11/27/24 21:30 IMPRESSION: No acute intracranial abnormality. If persistent concern for seizure foci, consider further evaluation with brain MRI One or more dose reduction techniques were used (e.g., Automated exposure control, adjustment of the mA and/or kV according to patient size, use of iterative reconstruction technique). Reading Location: [facility] Chest X-Ray 11/27/24 21:34 IMPRESSION: Retrocardiac opacity. Pneumonia including that of aspiration can present similarly. Follow-up is advised Reading Location: [facility] Critical Care Time Critical Care Time: Yes Critical care time (excluding procedures): 30-74 minutes, Discussing w/Patient &/or Family/Carnival Worker, Discussing w/Consultants, Arranging Admission or Transfer, Performing Direct Patient Care at Bedside and - (40 minutes) Discharge Plan Triage Chief Complaint: Seizure ED Provider: Leonard Dale Dx/Rx/DC Orders Clinical Impression: New onset seizure, Aspiration pneumonia, Hypoxia, Acute UTI, ESRD on peritoneal dialysis, Buerger's disease, Severe sepsis Prescriptions: No Action allopurinol 100 mg tablet 100 mg PO DAILY sodium bicarbonate 650 mg tablet 1,300 mg PO TID Velphoro 500 mg tablet,chewable 1,000 mg PO BID Veltassa 8.4 gram powder in packet 8.4 g PO DAILY hydralazine 50 mg tablet 50 mg PO BID nifedipine 60 mg tablet extended release 60 mg PO DAILY sevelamer carbonate 800 mg tablet 1,600 mg PO TID ondansetron 4 mg tablet,disintegrating 4 mg PO TID PRN (Reason: nausea and vomiting) Qty: 21 0RF metoclopramide HCl [Reglan] 5 mg tablet 5 mg PO Q8H PRN PRN (Reason: nausea and vomiting) 3 Days Qty: 10 0RF ondansetron HCl 8 mg tablet 8 mg PO Q12H PRN PRN (Reason: nausea) nifedipine 60 mg tablet extended release 24hr 60 mg PO BID hydralazine 100 mg tablet 100 mg PO Q8 losartan 25 mg tablet 25 mg PO QHS ergocalciferol (vitamin D2) 1,250 mcg (50,000 unit) capsule 1,250 mcg PO QWEEK RenaPlex-D 800 mcg-12.5 mg -2,000 unit tablet 1 tab PO DAILY Primary Care Provider: Quan Kim Referrals: Quan Kim MD [Primary Care Provider] - Print Language: American Disposition Disposition: DC/Tx to Another Type of HCF
--- NOTE | 2024-11-27 21:02 | ED.RN ---
Patient was alert and oriented x4 on arrival. Patient stated that began to feel funny. Seizure pads placed on bed, patient laid back in bed, Dr. Dale and Dr. Baca notified that patient was experiencing an aura. Patient again stated that they were feeling really weird. Patient then began to actively seize. Staff assist was called. Patient placed on side. NR was placed due to patient becoming hypoxic in the 60s while rolling to side and preparing suction. VO per Dr. Dale of 2mg IV Ativan given. Dr. Dale bedside to exam patient. Patient postictal at this time post ativan administration. Seizure lasted approx 60 seconds.
[2024-11-27 21:10] LABS: Bedside Glucose 134 mg/dL (74-106)
[2024-11-27 21:12] LABS: Absolute Neutrophil Count 12.1 X10^3/uL (2.0-7.7); Basophil# 0.13 X10^3/uL; Basophil% 0.6 % (0-1); Eosinophils% 4.7 % (0-5); Hematocrit 41.1 % (40-54); Hemoglobin 12.8 g/dL (13.0-16.5); Lymphocyte % 25.9 % (19-41); Mean Corp Hgb Conc 31.1 g/dL (32-36); Mean Corpuscular Hgb 28.6 pg (27.0-32.0); Mean Corpuscular Volume 91.7 fL (80-94); Mean Platelet Vol. 9.1 fl (6.2-12.0); Monocyte# 2.42 X10^3/uL; Monocyte% 11.4 % (0-10); NRBC Flagged by Analyzer 0 % (0-5); Neutrophil # 12.09 X10^3/uL (2.7-7.7); POSITIVE DIFFERENTIAL YES; POSITIVE MORPHOLOGY YES; Platelet Count 165 K/mm3 (150-450); RBC Distribution Width SD 49.6 fl (35.1-43.9); Red Blood Count 4.48 M/mm3 (4.6-6.2); White Blood Count 21.2 K/mm3 (4.4-11.0)
[2024-11-27 21:13] LABS: Squamous Epithelial Cells - UA 0 SEEN /hpf (0-5)
[2024-11-27] MEDS: levETIRAcetam IV 2,000 MG in 0.9% Normal Saline (250mL Bag) 230 ML 1000 MG IV (21:19)
[2024-11-27 21:21] LABS: Color, Urine Yellow (Yellow); Glucose, Dipstick 100 mg/dl (Normal); Ketone-Dipstick Negative (Negative); Leukocyte Esterase-Dipstick 100 /ul (Negative); Nitrite-Dipstick Negative (Negative); Occult Blood-Urine 150 /ul (Negative); Protein-Dipstick 500 mg/dl (Negative); Urine Bilirubin Dipstick Negative (Negative); Urine Clarity Cloudy (Clear); Urine Urobilinogen Normal (Normal)
[2024-11-27 21:25] LABS: Differential Indicated SCAN CRITERIA MET
--- NOTE | 2024-11-27 21:30 | CT_ITS ---
PROCEDURE: BRAIN/HEAD WITHOUT CONTRAST REASON FOR EXAM: SEIZURE TECHNIQUE: Head CT without intravenous contrast. COMPARISON: None. FINDINGS: There is no acute intracranial hemorrhage, mass effect, or evidence of large acute infarct. Brain: Normal CSF Spaces: Normal Sinuses/Mastoids: Clear at visualized levels Bones: Unremarkable CT/Brain/Head without Contrast IMPRESSION: No acute intracranial abnormality. If persistent concern for seizure foci, con mixologist further evaluation with brain MRI One or more dose reduction techniques were used (e.g., Automated exposure contr ol, adjustment of the mA and/or kV according to patient size, use of iterative reconstruction technique). Reading Location: [id number]
--- NOTE | 2024-11-27 21:34 | RAD_ITS ---
PROCEDURE: CHEST 1 VIEW (PORTABLE) 11/27/2024 REASON FOR EXAM: SEIZURE TECHNIQUE: Frontal view of the chest. COMPARISON: 06/2024 FINDINGS: Retrocardiac airspace opacity noted. Developing infiltrate and that of aspiration can present similarly. No pneumothorax or pleural effusion. Follow-up is advised with two-view radiograph RAD/Chest 1 View (Portable) IMPRESSION: Retrocardiac opacity. Pneumonia including that of aspiration can present simil edgar. Follow-up is advised Reading Location: [id number]
[2024-11-27 21:55] LABS: Alcohol, Blood (Medical)-Serum < 10.1 mg/dL (<=10.0)
[2024-11-27 21:57] LABS: Amphetamine Urine NEGATIVE (<1000 ng/mL); Barbiturate Urine NEGATIVE (< 200 ng/mL); Benzodiazepine Urine NEGATIVE (< 200 ng/mL); Buprenorphine Urine NEGATIVE (< 200 ng/mL); Cocaine Urine NEGATIVE (< 300 ng/mL); Fentanyl, Urine NEGATIVE; Methadone Urine NEGATIVE (< 300 ng/mL); Opiates Urine PRESUMPTIVE POSITIVE (< 300 ng/mL); Oxycodone, Urine NEGATIVE (< 100 ng/mL); PCP Urine NEGATIVE (< 25 ng/mL); THC Urine PREUMTIVE POSITIVE (< 50 ng/mL)
[2024-11-27 21:58] LABS: International Normalized Ratio 1.1; Prothrombin Time (Protime)PT. 14.8 SECONDS (11.7-14.9)
[2024-11-27 21:59] LABS: ALB/GLOB Ratio 1.3 RATIO (0.9-2.4); AST(SGOT) 30 U/L (<=37); Alanine Aminotransfer ALT/SGPT 17 U/L (<=46); Albumin, Serum 3.7 g/dL (3.5-5.0); Alkaline Phosphatase 68 U/L (40-129); Anion Gap 37 (5-15); BUN 45 mg/dL (4-19); BUN/Creat Ratio 2.5 RATIO (10-20); Chloride 90 mmol/L (98-108); EST Glomerular Filtration Rate 3 (>60); Estimated Creatinine Clearance 6.72 ml/min (50-250); Globulin 2.8 g/dL (2.2-4.2); Glucose 135 mg/dL (70-99); Potassium 3.4 mmol/L (3.3-5.1); Protein, Total 6.6 g/dL (5.9-8.4); Sodium Level 138 mmol/L (133-145); Total Bilirubin 0.39 mg/dL (0.00-1.30)
--- NOTE | 2024-11-27 21:59 | ED.RN ---
Critical Creatinine of 18.[address] Dale notified.
[2024-11-27 22:04] LABS: Partial Thromboplast Time 22.8 Seconds (24.1-36.2)
[2024-11-27] MEDS: 0.9% Normal Saline (1000mL) 1,000 ML 999 ML IV (22:31)
[2024-11-27 22:35] LABS: Bacteria 3+ /hpf (None Seen); Mucous, Urine 2+ /hpf (<or=2+); Red Blood Cells-Urine 5-10 SEEN /hpf (0-5); White Blood Cells 25-50 SEEN /hpf (0-5)
[2024-11-27] MEDS: Ampicillin/Sulbactam 3 GM in 0.9% Normal Saline (100mL MB+) 100 ML IV (22:52)
[2024-11-27 23:15] LABS: Differential Comment SCANNED
[2024-11-27 23:16] LABS: Acanthocytes RARE; Pathologist Review May foll; Platelet Estimate ADEQUATE (ADEQ); Platelet Morphology CLUMPED
[2024-11-27 23:42] LABS: Lactic Acid 3.8 mmol/L (0.0-2.0)
[2024-11-27] MEDS: Azithromycin 500 MG in Dextrose 5%-Water (250mL Bag) 250 ML 255 MG IV (23:59)
[2024-11-28] VITALS (20 sets, daily range): BP systolic 93–195; BP diastolic 48–128; PULSE 85–112; RESP 14–32; TEMP 36.6; O2SAT 94–99
--- NOTE | 2024-11-28 06:10 | ED.RN ---
Attempt to call report to [facility] and was informed because of the seizures,the pt will not be having his transplant and since this floor only takes transplant pt he will notify the bed board that he needs another bed assigned. Will call with bed assignment when available.
== END 2024-11-28 10:20 | disposition other institution (70) ==
PROVIDERS: Emergency Provider Emergency Medicine; PCP Family Medicine; Visit Provider Emergency Medicine
DX: R56.9 Unspecified convulsions (principal); N18.6 End stage renal disease; A41.9 Sepsis, unspecified organism; R65.20 Severe sepsis without septic shock; J69.0 Pneumonitis due to inhalation of food and vomit; Z99.2 Dependence on renal dialysis; R09.02 Hypoxemia; N39.0 Urinary tract infection, site not specified; I73.1 Thromboangiitis obliterans [Buerger's disease]
CPT/HCPCS: 70450; 71045; 80053; 80307; 81001; 82077; 82962; 83605; 85025; 85610; 85730; 87040; 87086; 93005; 96365; 96367; 96375; 99285; A4216; J0295

== ENCOUNTER 2024-12-17 07:08 | Emergency (ER) | payer OTHER, SELFPAY ==
[2024-12-17] VITALS (10 sets, daily range): BP systolic 201–216; BP diastolic 89–145; PULSE 87–126; RESP 18–26; TEMP 36.6; O2SAT 93–99; BMI 34.3
--- NOTE | 2024-12-17 07:10 | EX.ED.DYSGE1 ---
HPI History of Present Illness Chief Complaint: Seizure Informant: patient and EMS Onset/Context/Timing Onset: Today Context: Sudden Onset Timing: Intermittent Quality: Tonic-clonic Location: Generalized Worsened by: Nothing Relieved by: Nothing Narrative Narrative: Patient presents with a seizure that occurred today. Patient does not remember what happened with the seizure. Patient does not remember what he was doing when the seizure began. Patient denies any history of seizures. Patient is a poor informant. Currently, patient is only alert and oriented to self. EMS reports that the patient was hooked up to peritoneal dialysis catheter when they arrived. EMS disconnected the peritoneal dialysis and transferred the patient to the emergency department. [facility] Medical History Seizure Peritoneal dialysis catheter in place CKD (chronic kidney disease) Home Medications ?Medication ?Instructions ?Recorded ?Last Taken ?Type allopurinol 100 mg tablet 100 mg PO DAILY 08/22/23 Unknown History hydralazine 50 mg tablet 50 mg PO BID 08/21/24 Unknown History nifedipine 60 mg tablet,extended 60 mg PO DAILY 08/21/24 Unknown History release ondansetron 4 mg disintegrating 4 mg PO TID PRN nausea and 08/21/24 Unknown Rx tablet vomiting #21 tabs patiromer calcium sorbitex 8.4 8.4 g PO DAILY 08/21/24 Unknown History gram oral powder packet (Veltassa) sevelamer carbonate 800 mg tablet 1,600 mg PO TID 08/21/24 Unknown History sodium bicarbonate 650 mg tablet 1,300 mg PO TID 08/21/24 Unknown History sucroferric oxyhydroxide 500 mg 1,000 mg PO BID 08/21/24 Unknown History chewable tablet (Velphoro) metoclopramide HCl 5 mg tablet 5 mg PO Q8H PRN PRN nausea and 08/31/24 Unknown Rx (Reglan) vomiting 3 days #10 tabs ergocalciferol (vitamin D2) 1,250 1,250 mcg PO QWEEK 11/27/24 Unknown History mcg (50,000 unit) capsule hydralazine 100 mg tablet 100 mg PO Q8 11/27/24 Unknown History losartan 25 mg tablet 25 mg PO QHS 11/27/24 Unknown History nifedipine 60 mg tablet,extended 60 mg PO BID 11/27/24 Unknown History release 24 hr ondansetron HCl 8 mg tablet 8 mg PO Q12H PRN PRN nausea 11/27/24 Unknown History vit B,C-folic ac 800 mcg-zinc 12.5 1 tab PO DAILY 11/27/24 Unknown History mg-selen-D3 2,000 unit-vit E tablet (RenaPlex-D) Allergy/AdvReac Type Severity Reaction Status Date / Time No Known Allergies Allergy Verified 12/17/24 07:12 Family History no significant family his Surgical History no surgical history Social History Smoking Status: Never smoker ROS ROS ED Review of Systems ROS Unobtainable: due to mental condition and due to mental status EXAM Physical Exam Const Vital Signs: 12/17/24 07:09 12/17/24 07:46 12/17/24 08:08 Temperature 97.8 F Temperature Source Oral Pulse Rate 126 H 126 H 117 H Respiratory Rate 26 H 24 H 24 H Blood Pressure 204/133 H 216/124 H 204/143 H Blood Pressure Mean 156 154 163 Pulse Ox 93 94 Oxygen Delivery Method Room Air Nasal Cannula Oxygen Flow Rate (L/min) 2 12/17/24 08:59 12/17/24 09:00 Temperature Temperature Source Pulse Rate 114 H Respiratory Rate 24 H Blood Pressure 209/138 H 209/138 H Blood Pressure Mean 161 161 Pulse Ox 94 Oxygen Delivery Method Nasal Cannula Oxygen Flow Rate (L/min) 2 Positive well nourished and well developed Constitutional Narrative: BMI is 34.4 General Appearance ED: well developed and NAD Neck supple and no JVD Resp normal respiratory effort and clear to auscultation bilaterally Cardio regular rate and regular rhythm Extremity Extremity Narrative: There is an avulsion of the nail plate of the left great toe. There is no bony crepitus or step-off. There is no deformity noted. Neuro CN's II-XII intact bilaterally and no sensory deficits noted Neuro Narrative: Patient began having another seizure on exam. Patient's head deviated to the right. Patient started having generalized tonic-clonic activity. This lasted approximately 1 minute. Patient was postictal after this. Sensorium / Orientation: alert and orientation impaired Motor Exam: strength 5/5 throughout MDM MDM MDM Narrative Medical decision making narrative: Differential diagnosis includes intracranial bleeding, intracranial mass, infection, sepsis, electrolyte abnormality, pneumonia, urinary tract infection, and new onset seizure. CT scan of the brain will be obtained to assess for intracranial bleeding and intracranial mass. Chest x-ray will be obtained to assess for pneumonia and pneumothorax. EKG will be obtained to assess for cardiac dysrhythmia and cardiac ischemia. CBC will be obtained to assess for leukocytosis or anemia. Comprehensive metabolic profile will be obtained to assess for hepatic function, renal function, and electrolyte abnormality. PT with INR and PTT will be obtained to assess for coagulopathy. Lab Data Attestation: I reviewed the patient's lab results. Lab results narrative: CBC was reviewed. There is a leukocytosis of 23.5. This is likely from the seizure. There is a mild anemia with a hemoglobin of 12.6 and hematocrit of 38.9. PT with INR and PTT were reviewed and were within normal limits. Comprehensive metabolic profile was reviewed. CO2 was low at 9.3. This is likely due to the seizure. BUN was elevated at 53 and creatinine was elevated at 16.5. These are consistent with previous results. Labs: Laboratory Results - last 24 hr 12/17/24 07:30 WBC 23.5 H RBC 4.44 L Hgb 12.6 L Hct 38.9 L MCV 87.6 MCH 28.4 MCHC 32.4 RDW Std Deviation 44.0 H RDW Coeff of Chantal 13.8 Plt Count 325 MPV 9.3 Immature Gran % (Auto) 0.600 Neut % (Auto) 65.6 Lymph % (Auto) 23.5 Warrick % (Auto) 6.6 Eos % (Auto) 2.9 Baso % (Auto) 0.8 Absolute Neuts (auto) 15.4 H Absolute Lymphs (auto) 5.52 H Nucleated RBC % 0 [address] Review May foll Reactive Lymphocytes 1+ Platelet Estimate A Polychromasia 1+ PT 14.9 INR 1.1 APTT 27.1 Sodium 138 Potassium 4.6 Chloride 91 L Carbon Dioxide 9.3 L* Anion Gap 38 H BUN 53 H Creatinine 16.50 H* Estim Creat Clear Calc 7.53 L* Est GFR (MDRD) Non-Af 4 L BUN/Creatinine Ratio 3.2 L Glucose 155 H Calcium 10.8 Total Bilirubin 0.27 AST 26 ALT 18 Alkaline Phosphatase 76 Total Protein 7.1 Albumin 3.8 Globulin 3.2 Albumin/Globulin Ratio 1.2 Radiography Diagnostic Testing: Clinical Impression(s) from Imaging Studies Brain CT 12/17/24 07:22 IMPRESSION: No acute process identified. [facility] Chest X-Ray 12/17/24 08:01 IMPRESSION: Appearance of left lower hemithorax is suspect for effusion with or without substantial consolidation Reading [facility] CT scan of the brain was obtained. There is no acute intracranial abnormality. This was interpreted by the radiologist and was also independently reviewed by myself. Portable 1 view chest x-ray was obtained. On my independent interpretation, lung zaman show a left pleural effusion. There is borderline cardiomegaly. Bony thorax is normal. There is no acute process noted. Radiologist also interpreted the x-ray and agrees. EKG Initial EKG: Attestation: I personally reviewed and interpreted this EKG as follows: Interpretation: Sinus Tachycardia (138) and Non-Specific ST Changes Comments: EKG was obtained. On my independent interpretation, it showed a sinus tachycardia with a rate of 138. DE interval, QRS interval, and QTc intervals were all normal. [place] was normal. There are nonspecific ST-T wave changes. Prior EKG tracings: available for review Prior: Unchanged (11/27/2024) Treatment and Re-Evaluation :: Seizure precautions were maintained. Patient was given a dose of Ativan here. Patient is given a dose of hydralazine. Patient was given a dose of Keppra. The left great toe was anesthetized with 1% lidocaine via digital block. The nail plate was replaced. Xeroform and gauze dressing was applied. Patient tolerated the procedure well. Patient is becoming more awake and alert. Patient is still confused on the month. requested to be transferred to [facility] where his ride operator is. Case was discussed with the transfer line at [facility]. Patient was accepted to the service of Dr. Walker. Patient will be transferred there when a bed becomes available. Patient and family understand and are agreeable with the plan. All questions were answered. Discharge Plan Triage Chief Complaint: Seizure ED Provider: Erickson Lozano Dx/Rx/DC Orders Clinical Impression: Seizure, Chronic kidney disease, Avulsion of toenail of left foot Prescriptions: No Action allopurinol 100 mg tablet 100 mg PO DAILY sodium bicarbonate 650 mg tablet 1,300 mg PO TID Velphoro 500 mg tablet,chewable 1,000 mg PO BID Veltassa 8.4 gram powder in packet 8.4 g PO DAILY hydralazine 50 mg tablet 50 mg PO BID nifedipine 60 mg tablet extended release 60 mg PO DAILY sevelamer carbonate 800 mg tablet 1,600 mg PO TID ondansetron 4 mg tablet,disintegrating 4 mg PO TID PRN (Reason: nausea and vomiting) Qty: 21 0RF metoclopramide HCl [Reglan] 5 mg tablet 5 mg PO Q8H PRN PRN (Reason: nausea and vomiting) 3 Days Qty: 10 0RF ondansetron HCl 8 mg tablet 8 mg PO Q12H PRN PRN (Reason: nausea) nifedipine 60 mg tablet extended release 24hr 60 mg PO BID hydralazine 100 mg tablet 100 mg PO Q8 losartan 25 mg tablet 25 mg PO QHS ergocalciferol (vitamin D2) 1,250 mcg (50,000 unit) capsule 1,250 mcg PO QWEEK RenaPlex-D 800 mcg-12.5 mg -2,000 unit tablet 1 tab PO DAILY Primary Care Provider: Quan Kim Referrals: Quan Kim MD [Primary Care Provider] - Print Language: German Disposition Disposition: Acute Care Hospital Discharge Location: [facility]
--- NOTE | 2024-12-17 07:22 | CT_ITS ---
PROCEDURE: CT brain without 12/17/2024 REASON FOR EXAM: SEIZURE TECHNIQUE: Head CT without intravenous contrast. Coronal and Sagittal reconstruction series were provided. One or more dose reduction techniques were used (e.g., Automated exposure control, adjustment of the mA and/or kV according to patient size, use of iterative reconstruction technique. RADIATION DOSE SUMMARY: CTDlvol: 44.99 mGy DLP: 779.24 mGycm COMPARISON: CT brain November 27, 2024 FINDINGS: Brain: No mass, mass effect or midline shift. Turcios-white junction maintained. No intra-axial or extra-axial hemorrhage. CSF Spaces: Ventricles and sulci are unremarkable. Sinuses/Mastoids: Clear Bones: Unremarkable. CT/Brain/Head without Contrast IMPRESSION: No acute process identified. Reading [facility]
--- NOTE | 2024-12-17 07:22 | EKG12_ITS ---
Test Reason : SEIZURE Blood Pressure : */* mmHG Vent. Rate : 138 BPM Atrial Rate : 138 BPM P-R Int : 148 ms QRS Dur : 86 ms QT Int : 282 ms P-R-T Axes : 58 51 -69 degrees QTcB Int : 427 ms Sinus tachycardia Cannot rule out Anterior infarct , age undetermined ST & T wave abnormality, consider inferior ischemia Abnormal ECG Confirmed by MEGAN SILVA, ROSA ([id number]), editor city JUAN HERNANDEZ ([id number]) on 12/18/2024 9:13:19 AM Referred By: Confirmed By: ROSA GUZMAN MD
[2024-12-17] MEDS: Lorazepam 2 MG/ML WCH Syringe 1 MG IV (07:29)
[2024-12-17 07:44] LABS: Absolute Lymphocyte Count 5.52 X10^3/uL (0.83-4.51); Absolute Neutrophil Count 15.4 X10^3/uL (2.0-7.7); Basophil# 0.19 X10^3/uL; Basophil% 0.8 % (0-1); Eosinophil# 0.67 X10^3/uL; Eosinophils% 2.9 % (0-5); Hematocrit 38.9 % (40-54); Hemoglobin 12.6 g/dL (13.0-16.5); Lymphocyte # 5.52 X10^3/ul (0.83-4.51); Lymphocyte % 23.5 % (19-41); Mean Corp Hgb Conc 32.4 g/dL (32-36); Mean Corpuscular Hgb 28.4 pg (27.0-32.0); Mean Corpuscular Volume 87.6 fL (80-94); Mean Platelet Vol. 9.3 fl (6.2-12.0); Monocyte# 1.54 X10^3/uL; Monocyte% 6.6 % (0-10); NRBC Flagged by Analyzer 0 % (0-5); Neutrophil # 15.43 X10^3/uL (2.7-7.7); Neutrophil % 65.6 % (47-70); POSITIVE DIFFERENTIAL YES; POSITIVE MORPHOLOGY YES; Platelet Count 325 K/mm3 (150-450); RBC Distribution Width CV 13.8 % (11.6-14.6); Red Blood Count 4.44 M/mm3 (4.6-6.2); White Blood Count 23.5 K/mm3 (4.4-11.0)
[2024-12-17 07:53] LABS: Differential Indicated SCAN CRITERIA MET
[2024-12-17 07:54] LABS: International Normalized Ratio 1.1; Prothrombin Time (Protime)PT. 14.9 SECONDS (11.7-14.9)
[2024-12-17 07:55] LABS: Partial Thromboplast Time 27.1 Seconds (24.1-36.2)
--- NOTE | 2024-12-17 08:01 | RAD_ITS ---
PROCEDURE: CHEST 1 VIEW (PORTABLE) 12/17/2024 REASON FOR EXAM: SEIZURE TECHNIQUE: Frontal view of the chest. COMPARISON: Chest radiograph November 27, 2024 FINDINGS: Hardware: None Heart: Borderline enlarged Lungs: Hazy opacity obscures the left hemidiaphragm. Possible left pleural effusion and left lower lobe associated atelectasis. Left upper lobe is clear. Right lung is clear. Bones: Unremarkable Other: RAD/Chest 1 View (Portable) IMPRESSION: Appearance of left lower hemithorax is suspect for effusion with or without sub stantial consolidation Reading Location[facility]
[2024-12-17] MEDS: hydrALAZINE 20 MG/ML Vial 10 MG IV ×2 (08:13→09:16)
[2024-12-17 08:22] LABS: ALB/GLOB Ratio 1.2 RATIO (0.9-2.4); AST(SGOT) 26 U/L (<=37); Alanine Aminotransfer ALT/SGPT 18 U/L (<=46); Albumin, Serum 3.8 g/dL (3.5-5.0); Alkaline Phosphatase 76 U/L (40-129); Anion Gap 38 (5-15); BUN 53 mg/dL (4-19); BUN/Creat Ratio 3.2 RATIO (10-20); Calcium,Total 10.8 mg/dL (7.6-11.0); Chloride 91 mmol/L (98-108); EST Glomerular Filtration Rate 4 (>60); Estimated Creatinine Clearance 7.53 ml/min (50-250); Globulin 3.2 g/dL (2.2-4.2); Glucose 155 mg/dL (70-99); Potassium 4.6 mmol/L (3.3-5.1); Protein, Total 7.1 g/dL (5.9-8.4); Sodium Level 138 mmol/L (133-145); Total Bilirubin 0.27 mg/dL (0.00-1.30)
[2024-12-17] MEDS: Lidocaine 1% (20 ml mdv) 20 ML Vial INFILT (08:39)
[2024-12-17] MEDS: levETIRAcetam IV 1,000 MG/100 ML BAG 400 MG IV (08:40)
[2024-12-17 09:02] LABS: Platelet Estimate A (ADEQ); Polychromasia 1+; Reactive Lymphocyte 1+
--- NOTE | 2024-12-17 09:15 | PCA ---
CALLED [facility] AT [phone]. FAXED THE FACE SHEET AND PUSHED THE IMAGES OVER TO THEM.
--- NOTE | 2024-12-17 10:07 | PCA ---
ACCEPTED AT [facility] AT 0954. WAITING FOR BED ASSIGNMENT.
[2024-12-17] MEDS: Acetaminophen 500 MG Tablet 1000 MG PO (10:56)
[2024-12-17] MEDS: Morphine 4 MG/ML Syringe IV (11:38)
[2024-12-17 19:10] LABS: Carbon Dioxide 9.3 mmol/L (21.0-32.0)
== END 2024-12-17 13:31 | disposition short-term general hospital (02) ==
PROVIDERS: Emergency Provider Emergency Medicine; PCP Family Medicine; Visit Provider Emergency Medicine
DX: R56.9 Unspecified convulsions (principal); N18.9 Chronic kidney disease, unspecified; Z99.2 Dependence on renal dialysis; Z79.899 Other long term (current) drug therapy; S91.202A Unspecified open wound of left great toe with damage to nail, initial encounter
CPT/HCPCS: 70450; 71045; 80053; 85025; 85610; 85730; 93005; 96374; 96375; 96376; 99285; A4216